=== PATIENT | female | born 1980 ===

== ENCOUNTER → 2023-11-15 11:45 | Outpatient (CLI) | payer OTHER | END | disposition home or self-care (01) | LOC: PRENATAL 11:45 | PROVIDERS: ATTEND Obstetrics & Gynecology Maternal & Fetal Medicine | DX: O35.3XX0 Maternal care for (suspected) damage to fetus from viral disease in mother, not applicable or unspecified (principal); O44.00 Complete placenta previa NOS or without hemorrhage, unspecified trimester; O09.529 Supervision of elderly multigravida, unspecified trimester; O34.40 Maternal care for other abnormalities of cervix, unspecified trimester; Z3A.23 23 weeks gestation of pregnancy ==